=== PATIENT | female | born 1965 | race American Indian/Alaskan Native ===

== ENCOUNTER 2016-10-27 21:01 | Emergency (ER) | payer MEDICAID ==
[2016-10-27 22:27] LABS: Basophils % (Auto) 0.6 % (0.0-1.8); Eosinophils % (Auto) 2.8 % (0.0-4.3); Hemoglobin 13.2 gm/dl (10.1-14.3); Mean Corpuscular HGB Conc 33 % (30-34); Mean Corpuscular Hemoglobin 31 pg (28-32); Mean Corpuscular Volume 93 fl (79-97); Platelet Count 209 K/mm3 (140-440); Red Blood Count 4.28 M/mm3 (3.65-5.03); Red Cell Distribution Width 13.7 % (13.2-15.2); White Blood Count 4.1 K/mm3 (4.5-11.0)
[2016-10-27 22:33] LABS: Anion Gap 16 mmol/L; Blood Urea Nitrogen 14 mg/dL (7-17); Carbon Dioxide 25 mmol/L (22-30); Chloride 97.9 mmol/L (98-107); Glucose 101 mg/dL (65-100); Potassium 3.4 mmol/L (3.6-5.0); Sodium 135 mmol/L (137-145)
--- NOTE | 2016-10-28 07:24 | Emergency Department Report ---
ED Chest Pain HPI - General Chief Complaint: Chest Pain Stated Complaint: CHEST PAIN/HIGH BP Time Seen by Provider: 10/28/16 07:12 Source: patient Mode of arrival: Ambulatory Limitations: No Limitations - History of Present Illness Initial Comments: 50-year-old female presents to the emergency department complaining of chest pain. Patient reports onset of symptoms approximate 7 PM last night. Patient describes a sharp, lightning like sensation in her chest. The pain lasts only a second before spontaneously resolving. Patient reports multiple episodes since onset. She denies associated dizziness, diaphoresis, shortness of breath , nausea, or vomiting. Patient states she has only had one episode since being placed in a room. There are no other complaints. -: Sudden, days(s) (1) Onset: during rest Pain Location: substernal Pain Radiation: none Severity: moderate Quality: sharp Consistency: now resolved Improves With: nothing Worsens With: nothing re: denies: nausea, vomting, diaphoresis, dyspnea Treatments Prior to Arrival: none Aspirin use within the Past 7 Days: (0) No - Related Data Allergies Allergy/AdvReac Type Severity Reaction Status Date / Time No Known Allergies Allergy Unverified 10/27/16 21:19 RAMA score - Rama Score Age > 65: (0) No Aspirin use within the Past 7 Days: (0) No 3 or more CAD Risk Factors: (0) No 2 or more Angina events in past 24 hrs: (0) No Known CAD with more than 50% Stenosis: (0) No Elevated Cardiac Markers: (0) No ST Deviation Greater than 0.5mm: (0) No RAMA Score: 0 ED Review of Systems ROS: Stated complaint: CHEST PAIN/HIGH BP Other details as noted in HPI Comment: All other systems reviewed and negative Cardiovascular: chest pain ED Past Medical Hx - Past Medical History Previous Medical History?: Yes Hx Hypertension: Yes - Surgical History Past Surgical History?: Yes Additional Surgical History: c-sec x 2 - Family History Family history: hypertension, other (stroke) - Social History Smoking Status: Never Smoker Substance Use Type: Alcohol ED Physical Exam - General Limitations: No Limitations General appearance: alert, in no apparent distress - Head Head exam: Present: atraumatic, normocephalic - Eye Eye exam: Present: normal appearance, PERRL, EOMI - ENT ENT exam: Present: normal exam, normal orophraynx, mucous membranes moist - Neck Neck exam: Present: normal inspection, full ROM. Absent: tenderness - Respiratory Respiratory exam: Present: normal lung sounds bilaterally. Absent: respiratory distress - Cardiovascular Cardiovascular Exam: Present: regular rate, normal rhythm, normal heart sounds - GI/Abdominal GI/Abdominal exam: Present: soft, normal bowel sounds. Absent: distended, tenderness - Extremities Exam Extremities exam: Present: normal inspection, full ROM. Absent: tenderness - Back Exam Back exam: Present: normal inspection, full ROM. Absent: tenderness - Neurological Exam Neurological exam: Present: alert, oriented X3. Absent: motor sensory deficit - Skin Skin exam: Present: warm, dry, intact ED Course Vital Signs 10/27/16 10/28/16 21:47 03:53 Temperature 98.2 F 98.1 F Pulse Rate 78 73 Respiratory 18 18 Rate Blood Pressure 164/84 165/98 O2 Sat by Pulse 98 100 Oximetry ED Medical Decision Making - Lab Data Result diagrams: 10/27/16 22:03 10/27/16 22:03 - EKG Data -: EKG Interpreted by [facility] EKG shows normal: sinus rhythm, axis, intervals, QRS complexes, ST-T waves Rate: normal - EKG Data When compared to previous EKG there are: previous EKG unavailable Interpretation: other (sinus rhythm with frequent premature atrial contractions. There are no ischemic changes noted.) - Medical Decision Making Laboratory results reviewed and discussed with the patient. Patient has had a nonischemic EKG and 3 negative troponins. Patient remains asymptomatic at this time. Patient will be discharged home to follow up with her mammography technician at [place]. - Differential Diagnosis ACS, atypical chest pain, anxiety Critical care attestation.: If time is entered above; I have spent that time in minutes in the direct care of this critically ill patient, excluding procedure time. ED Disposition Clinical Impression: Non-cardiac chest pain Disposition: DISCHARGED TO HOME OR SELFCARE Is pt being admited?: No Condition: Stable Instructions: Chest Pain (ED) Referrals: PRIMARY CARE, [Primary Care Provider] - 3-5 Days Time of Disposition: 07:24
[2016-10-28 07:31] VITALS: BP 141/75
== END 2016-10-28 07:42 | disposition home or self-care (01) ==
LOC: ED 21:01
DX: R07.89 Other chest pain (principal); I10 Essential (primary) hypertension
CPT/HCPCS: 36415; 80048; 84484; 85025; 93005; 93010; 99284